=== PATIENT | male | born 1990 | race Caucasian/White ===

== ENCOUNTER 2024-03-29 19:27 | Observation (INO) | payer MEDICAID, SELFPAY ==
[2024-03-29 19:28] VITALS: PULSE 93; RESP 16; TEMP 36.6; O2SAT 94; BMI 17.9
--- NOTE | 2024-03-29 20:09 | EX.ED.SAOD ---
HPI History of Present Illness Chief Complaint: Substance Abuse Informant: patient Onset/Context/Timing Onset: Days (2) Context: Gradual Onset Worsened by: Nothing Relieved by: Nothing Associated Symptoms Associated Symptoms: Positive for fever*; Negative for vomiting*, diarrhea*, rash*, seizure, tremor, palpatations, suicidal ideation or homicidal ideation Narrative Narrative: Patient presents requesting detox from heroin and fentanyl. Patient states he uses approximately 1 g/day. Patient states his last use was Thursday. Patient states he was using Suboxone yesterday to help with withdrawal symptoms. Patient states he normally smokes the heroin and fentanyl. Patient denies any IV drug use. Patient admits to some subjective fevers and chills. Patient admits to some nausea but denies any vomiting or diarrhea. Patient denies any seizures or tremors. Patient denies any suicidal homicidal ideations. Patient states he has been through detox before but at a different facility. Patient states it has been a couple years since he went through detox. [facility] Medical History no medical history Home Medications ?Medication ?Instructions ?Recorded ?Last Taken ?Type NK 03/29/24 Unknown History Allergy/AdvReac Type Severity Reaction Status Date / Time No Known Allergies Allergy Verified 03/29/24 19:29 Surgical History History of bilateral inguinal herniorrhaphies Surgical History no surgical history Social History Smoking Status: Current every day smoker tobacco type: cigarettes and e-cigarettes ROS ROS ED Constitutional Constitutional ED: Reports chills and fever(s) Eyes Eyes: Denies blurry vision or change in vision ENT ENT ED: Denies rhinorrhea or sore throat Cardiovascular Cardiovascular: Denies chest pain or palpitations Respiratory/Chest Respiratory/Chest: Denies cough or dyspnea Gastrointestinal Gastrointestinal: Reports nausea; Denies vomiting Genitourinary Genitourinary ED: Denies dysuria or hematuria Musculoskeletal Musculoskeletal: Reports myalgias; Denies neck pain Integumentary Denies abscess or rash Neurologic Neurologic: Reports headache(s); Denies weakness Allergic/Immunologic Allergic/Immunologic ED: Denies mouth swelling or urticaria EXAM Physical Exam Const Vital Signs: 03/29/24 19:28 Temperature 97.8 F Temperature Source Temporal Pulse Rate 93 Respiratory Rate 16 Pulse Ox 94 Oxygen Delivery Method Room Air Positive well nourished and well developed General Appearance ED: well developed and NAD HEENT Reports moist mucous membranes atraumatic Neck supple and no JVD Resp normal respiratory effort and clear to auscultation bilaterally Cardio regular rate and regular rhythm GI soft to palpation, non-tender and non-distended Extremity General Extremety ED: Negative for edema or tenderness General Extremity: Negative for edema Neuro oriented x3, CN's II-XII intact bilaterally and no sensory deficits noted Kiran Coma Scale: document GCS findings Spontaneous Obeys Commands Oriented 15 Sensorium / Orientation: alert Speech: speech normal Motor Exam: strength 5/5 throughout Psych mental status grossly normal and thought process normal MDM MDM MDM Narrative Medical decision making narrative: Medical screening labs will be obtained. CBC will be obtained to assess for leukocytosis and anemia. Basic metabolic profile will be obtained to assess for electrolyte abnormality and renal function. Serum alcohol level will be obtained to assess for alcohol intoxication. Urine drug screen will be obtained to assess for substance abuse. Lab Data Attestation: I reviewed the patient's lab results. Lab results narrative: CBC was reviewed. There is a slight anemia with a hemoglobin of 12.3 and hematocrit 37.1. Basic metabolic profile was reviewed. Potassium was slightly low at 3.3. The remainder is within normal limits. Serum alcohol level was reviewed and was less than 3.0. Labs: Laboratory Results - last 24 hr 03/29/24 20:47 WBC 6.7 RBC 4.14 L Hgb 12.3 L Hct 37.1 L MCV 89.6 MCH 29.7 MCHC 33.2 RDW Std Deviation 40.2 RDW Coeff of Yvette 12.4 Plt Count 272 MPV 8.4 Immature Gran % (Auto) 0.300 Neut % (Auto) 58.2 Lymph % (Auto) 32.0 [place] % (Auto) 7.5 Eos % (Auto) 1.4 Baso % (Auto) 0.6 Absolute Neuts (auto) 3.9 Absolute Lymphs (auto) 2.13 Nucleated RBC % 0 Sodium 137 Potassium 3.3 L Chloride 104 Carbon Dioxide 27.0 Anion Gap 6 BUN 12 Creatinine 0.98 Estim Creat Clear Calc 103.73 Est GFR (MDRD) Af Amer 112 Est GFR (MDRD) Non-Af 93 BUN/Creatinine Ratio 12.2 Glucose 108 H Calcium 9.1 Ethyl Alcohol < 3.0 Management Discussion w/another healthcare provider: Hospitalist Treatment and Re-Evaluation Narrative: Case was discussed with the hospitalist for admission. He will admit the patient to his service. Patient understood and was agreeable with the plan. All questions were answered. Discharge Plan Dx/Rx/DC Orders Clinical Impression: Opiate withdrawal, Tobacco use disorder Disposition Disposition: Acute Care Hospital [facility] Discharge Date/Time: 03/29/24 21:51
--- NOTE | 2024-03-29 21:00 | HP.PCM.HOS_ITS ---
HPI - General General Date of Admission: 03/29/24 HPI Narrative TJ THAKUR, is a 33 M who presents to the hospital for opiate detox. He says that he smokes heroin and fentanyl though he is never 100% sure what he is using. He denies IV drug use. He says he has used in the past and was able to get clean and has gone through detox 3 or 4 times. This last cycle started in about September of this year. Last use was Thursday and then he had some leftover Suboxone that he tried to use to withdrawal with at home but could not manage this at home so came into the hospital. Cina score of 12 on admission to the ER. [facility] Medical History no medical history Home Medications ?Medication ?Instructions ?Recorded ?Last Taken ?Type NK 03/29/24 Unknown History Allergy/AdvReac Type Severity Reaction Status Date / Time No Known Allergies Allergy Verified 03/29/24 19:29 no significant family history Surgical History (Updated 03/29/24 @ 20:[address] Ld Doyle, DO) History of bilateral inguinal herniorrhaphies Surgical History no surgical history Social History Smoking Status: Current every day smoker tobacco type: cigarettes and e-cigar ettes ROS Constitutional Constitutional: Denies chills, fatigue, fever(s) or malaise Eyes Eyes: Denies blurry vision ENT HEENT: Denies headache(s) or nasal discharge Cardiovascular Cardiovascular: Denies chest pain, dyspnea on exertion or syncope Respiratory/Chest Respiratory/Chest: Denies cough, shortness of breath at rest or shortness of breath with exertion Gastrointestinal Gastrointestinal: Reports diarrhea and nausea; Denies constipation or vomiting Genitourinary Genitourinary: Denies dysuria Neurologic Neurologic: Denies focal weakness, numbness or tremor(s) Psychiatric Psychiatric: Reports anxiety; Denies depression Vital Signs Vital Signs Vital Signs: 03/29/24 19:28 Temperature 97.8 F Temperature Source Temporal Pulse Rate 93 Respiratory Rate 16 Pulse Ox 94 Oxygen Delivery Method Room Air Weight Weight: 150 lb 12.8 oz Body Mass Index (BMI) 17.9 Physical Exam Narrative General: Alert, Oriented x3, Cooperative, No apparent distress, restless HEENT: Atraumatic, PERRLA, EOMI, Normocephalic Oral: Moist Mucosa Neck: Supple, No JVD Lungs: Clear to auscultation, Normal air movement, No rhonchi, No wheeze, No rales Cardiovascular: Regular rate, Regular Rhythm, Normal S1, Normal S2, No murmurs Abdomen: Soft, Non Tender, Non-Distended, No Hepato-splenomegaly Extremities: No edema, Capillary Refill Less than 3 Seconds Skin: No rashes, No breakdown Musculoskeletal: No Tenderness to Palpation of Joints or Extremities Neurological: No focal neurological deficits, Motor Exam 5/5 strength throughout, Sensory exam intact to light touch and pain Psych/Mental Status: Normal Affect, Appropriate, anxious Assessment & Plan Assessment/Plan (1) Opiate withdrawal: PLAN: Plan 1. Opiate withdrawal/tobacco abuse ? Cina score of 12 ? Continue with the opiate withdrawal protocol, he does not inject therefore will not check an HIV or hepatitis panel ? He is from [place] and would like to seek treatment out there on discharge, uncertain if he would want to do inpatient ? Discussed tobacco cessation ? Continue with nicotine patch as he vapes DVT: Ambulation Charges/Coding Visit Charges Inpatient E&M: 75450 Init Hosp L2
[2024-03-29 21:06] LABS: Absolute Lymphocyte Count 2.13 X10^3/uL (0.83-4.51); Absolute Neutrophil Count 3.9 X10^3/uL (2.0-7.7); Basophil# 0.04 X10^3/uL; Basophil% 0.6 % (0-1); Eosinophil# 0.09 X10^3/uL; Eosinophils% 1.4 % (0-5); Hematocrit 37.1 % (40-54); Hemoglobin 12.3 g/dL (13.0-16.5); Lymphocyte # 2.13 X10^3/ul (0.83-4.51); Mean Corp Hgb Conc 33.2 g/dL (32-36); Mean Corpuscular Hgb 29.7 pg (27.0-32.0); Mean Corpuscular Volume 89.6 fL (80-94); Mean Platelet Vol. 8.4 fl (6.2-12.0); Monocyte% 7.5 % (0-10); NRBC Flagged by Analyzer 0 % (0-5); Neutrophil # 3.88 X10^3/uL (2.7-7.7); Neutrophil % 58.2 % (47-70); Platelet Count 272 K/mm3 (150-450); RBC Distribution Width CV 12.4 % (11.6-14.6); RBC Distribution Width SD 40.2 fl (35.1-43.9); Red Blood Count 4.14 M/mm3 (4.6-6.2); White Blood Count 6.7 K/mm3 (4.4-11.0)
[2024-03-29 21:21] LABS: Alcohol, Blood (Medical)-Serum < 3.0 mg/dL
[2024-03-29 21:23] LABS: Anion Gap 6 (5-15); BUN 12 mg/dL (7-18); BUN/Creat Ratio 12.2 RATIO (10-20); Calcium,Total 9.1 mg/dL (8.5-10.1); Chloride 104 mmol/L (98-107); Creatinine, Serum 0.98 mg/dL (0.70-1.30); EST Glomerular Filtration Rate 93 mL/min (>60); Est Glom Filt Rate - Afr Amer 112 mL/min (>60); Estimated Creatinine Clearance 103.73 ml/min; Glucose 108 mg/dL (74-106); Potassium 3.3 mmol/L (3.5-5.1); Sodium Level 137 mmol/L (136-145)
[2024-03-29 21:41] VITALS: BP 138/77; PULSE 91; RESP 16; TEMP 36.6; O2SAT 99
[2024-03-29 22:08] VITALS: BMI 20.4
[2024-03-29] MEDS: hydrOXYzine PAM 25 MG Capsule 50 MG PO (22:22)
[2024-03-29] MEDS: Methocarbamol 750 MG Tablet PO (22:22)
[2024-03-29 22:24] VITALS: BP 102/63; PULSE 78; RESP 17; TEMP 36.4; O2SAT 100
[2024-03-29] MEDS: traZODone 100 MG Tablet PO (22:43)
[2024-03-30 04:08] VITALS: BP 106/45; PULSE 68; RESP 17; TEMP 36.6; O2SAT 100
--- NOTE | 2024-03-30 07:25 | PN.HOSP_ITS ---
Reason for Visit Reason for Visit: Diagnoses Opioid use, unspecified with withdrawal (03/29/24) Subjective Subjective Feeling well, much better than yesterday. Objective Data Objective Data Vital Signs: Vital Signs Temp Pulse Resp BP Pulse Ox O2 Del Method 36.6 C 68 17 106/45 L 100 Room Air 03/30/24 04:08 03/30/24 04:08 03/30/24 04:08 03/30/24 04:08 03/30/24 04:08 03/30/24 04:08 Oxygen Delivery Method Room Air Weight: 68.4 kg Body Mass Index (BMI) 20.4 Lab / Micro Data 03/29/24 20:47 03/29/24 20:47 Labs: Laboratory Results - last 24 hr 03/29/24 20:47: WBC 6.7, RBC 4.14 L, Hgb 12.3 L, Hct 37.1 L, MCV 89.6, MCH 29.7, MCHC 33.2, RDW Std Deviation 40.2, RDW Coeff of Yvette 12.4, Plt Count 272, MPV 8.4, Immature Gran % (Auto) 0.300, Neut % (Auto) 58.2, Lymph % (Auto) 32.0, Gregory % (Auto) 7.5, Eos % (Auto) 1.4, Baso % (Auto) 0.6, Absolute Neuts (auto) 3.9, Absolute Lymphs (auto) 2.13, Nucleated RBC % 0, Sodium 137, Potassium 3.3 L, Chloride 104, Carbon Dioxide 27.0, Anion Gap 6, BUN 12, Creatinine 0.98, Estim Creat Clear Calc 103.73, Est GFR (MDRD) Af Amer 112, Est GFR (MDRD) Non-Af 93, BUN/Creatinine Ratio 12.2, Glucose 108 H, Calcium 9.1, Ethyl Alcohol < 3.0 Physical Exam Const alert and no apparent distress Constitutional Narrative: up in bed eating breakfast. Assessment & Plan Assessment/Plan (1) Opiate withdrawal: PLAN: Plan Acute opiate withdrawal * buprenorphine taper * addiction medicine to see to arrange outpatient follow up. * Patient should be ready for discharge on 04/01 Nicotine abuse (vaping) * nicotine patch Charges/Coding Visit Charges Inpatient E&M: 78281 [facility] Hosp L1
--- NOTE | 2024-03-30 08:07 | NURSING ---
a&ox3. noted COWS score, no change from [employer] assessment noted-charting reviewed. pt denies all needs.
[2024-03-30 08:08] VITALS: BP 109/66; PULSE 70; RESP 18; TEMP 36.6; O2SAT 99
[2024-03-30] MEDS: Ondansetron 8 MG Tablet PO ×2 (10:05→18:04)
[2024-03-30] MEDS: hydrOXYzine PAM 25 MG Capsule 50 MG PO ×2 (10:10→20:05)
[2024-03-30] MEDS: Buprenorphine HCl 2 MG TAB.SUBL SL ×2 (10:58→18:04)
[2024-03-30 13:33] VITALS: BP 142/88; PULSE 50; RESP 18; TEMP 36.6; O2SAT 100
--- NOTE | 2024-03-30 15:21 | ADDICTION ---
Addendum entered by Zuleyka Garcia 03/31/24 11:03: Met with patient again today. He reports he decided to follow up with [facility] instead so that he can get back on Suboxone post d/c. Original Note: Met with pt to complete RAMP assessments. Pt was A&Ox3. He was very groggy and had slurred speech. He reports that he is going to follow up with [facility] in [place] for Outpatient treatment.?
[2024-03-30] MEDS: traZODone 100 MG Tablet PO (20:05)
[2024-03-30 20:08] VITALS: BP 160/95; PULSE 80; RESP 17; TEMP 37.3; O2SAT 100
[2024-03-31] MEDS: Buprenorphine HCl 2 MG TAB.SUBL SL ×2 (02:05→09:33)
[2024-03-31] MEDS: hydrOXYzine PAM 25 MG Capsule 50 MG PO (02:10)
[2024-03-31] MEDS: Gabapentin 300 MG Capsule PO (02:10)
[2024-03-31] MEDS: Ondansetron 8 MG Tablet PO (02:10)
[2024-03-31 02:13] VITALS: BP 125/67; PULSE 65; RESP 16; TEMP 37.3; O2SAT 99
--- NOTE | 2024-03-31 07:38 | PCM.PN.HOSP ---
Reason for Visit Reason for Visit: Diagnoses Opioid use, unspecified with withdrawal (03/29/24) Objective Data Objective Data Vital Signs: Vital Signs Temp Pulse Resp BP Pulse Ox O2 Del Method 99.1 F 65 16 125/67 H 99 Room Air 03/31/24 02:13 03/31/24 02:13 03/31/24 02:13 03/31/24 02:13 03/31/24 02:13 03/31/24 02:13 Oxygen Delivery Method Room Air Weight: 68.4 kg Body Mass Index (BMI) 20.4 Lab / Micro Data 03/29/24 20:47 03/29/24 20:47
[2024-03-31 09:15] VITALS: BP 116/73; PULSE 81; RESP 14; TEMP 36.3; O2SAT 99
[2024-03-31] MEDS: Nicotine Polacrilex 2 MG GUM PO (10:27)
--- NOTE | 2024-03-31 12:17 | DS.PCM_ITS ---
Providers Date of Admission: 03/29/24 Date of Discharge: 03/31/24 Primary Care Physician: No Primary Care Phys Reason For Visit: OPIATE DETOX Diagnosis Discharge Diagnosis (1) Opiate withdrawal: Status: Acute Code(s): F11.93 - Opioid use, unspecified with withdrawal Medications at Discharge Home Medications NK 03/29/24 Hospital Course Operations None Procedures None Summary of Care Provided Minutes Spent on Discharge: 25 Hospital Course: Mr. Cuba is a 33-year-old white male who presents emergency department [facility] on 03/29/2020 for requesting detox from opiates. Patient states he smokes heroin and fentanyl however he is not 100% of what he is using. He denies any history of IV drug use. He states in the past he has been able to be sober for short periods of time and has gone through detox 3-4 times. His last cycle of use started in September of this year and his last use was on Thursday. He had some leftover Suboxone and he tried to use it for his withdrawal symptoms but could not manage at home so he came to emergency department. His COWS score on presentation was 12. Vital signs show temperature 97.8, heart rate 93, blood pressure was 138/77, respiratory 16 and pulse ox was 94% on room air. CBC was overtly unremarkable other than mild anemia with hemoglobin of 12.3. Chemistry panel showed mild hypokalemia with a potassium of 3.3 which was replaced. Labs are otherwise unremarkable. Alcohol level is negative. Urine drug screen was not obtained. He was admitted to the medical floor and placed on supportive medication for withdrawal symptoms as well as buprenorphine taper based on COWS protocol. He was seen by addiction medicine and the plan for discharge was [facility]. He is to be admitted there tomorrow on 04/01/2024 and would like to leave this evening after his last buprenorphine taper so we can going get an order. He states he is feeling better overall and is okay with that plan based on his symptoms at this time. He was discharged home in stable condition after his 5 PM dosing of buprenorphine. He is to follow-up with [facility] as previously scheduled. Discharge diagnoses: Opiate withdrawal Hypokalemia Mild anemia Tobacco abuse Physical Exam Const alert, oriented x3, no apparent distress and no limitations Constitutional Narrative: Thin, middle-aged, white male, lying in bed, appears comfortable, nontoxic General Appearance: cooperative, comfortable, well kempt and well developed Exam Limitations: no limitations Nutritional Appearance: thin HEENT normocephalic, head/scalp atraumatic and moist oral mucous membranes Resp normal respiratory effort, no use of accessory muscles and clear to auscultation bilaterally Auscultation: Negative for rales, rhonchi or wheezes Cardio regular rate, regular rhythm, S1 normal heart sound, S2 normal heart sound, no murmurs, no rub, no gallops and no clicks GI normal to inspection, nondistended, normoactive bowel sounds, soft to palpation and non-tender Extremity no clubbing, cyanosis or edema Extremity Narrative: 2+ pedal pulses Neuro oriented x3, moves all extremities and no focal motor deficits Speech: speech normal Psych Psych Narrative: Affect is slightly flat mood seems depressed but eye contact is good Weight / BMI Weight Weight: 68.4 kg Body Mass Index (BMI) 20.4 ABG / Lab / Microbiology Data 03/29/24 20:47 03/29/24 20:47 D/C Instructions Discharge Diet: No restrictions Return to work on: 04/01/24 DC O2, CPAP, BIPAP Needs Home O2 Discharge instructions: No Meaningful Use Info Meaningful Use Meaningful Use Diagnoses (Choose all that apply): None applicable Ischemic Stroke Statin Dosing Therapy Reference: STATIN DOSE THERAPY REFERENCE: * Patients > 75 years receive moderate or high dose statin therapy. * Patients 75 years or YOUNGER should receive HIGH intensity statin dose unless contraindicated. You will be required to document reason for non-treatment if statin daily dose does not meet guidelines. HIGH DOSE STATIN THERAPY DAILY Atorvastatin > than or = to 40 mg Rosuvastatin > than or = to 20 mg Amlodipine + Atorvastatin > than or = to 2.5/40 mg Ezetimibe + Simvastatin 10/80 mg Simvastatin 80mg Discharge Plan Admission Admit Date/Time: 03/29/24 20:58 Primary Reason for Your Visit: Opiate detox Attending Provider: She Gomez Primary Care Provider: Care Physician,No Primary Consulting Providers: Kian Thomas Eric Instructions Additional Instructions / Restrictions: 1. Please follow-up tomorrow at [facility] Discharge Orders/Prescriptions Prescriptions: Continued NK Referrals / Follow Up: Care Physician,No Primary [Primary Care Provider] - Disposition Disposition (needs filled in before D/C Order can be placed): Home, Self Care Charges/Coding Visit Charges Inpatient E&M: 88838 Disch Hosp
[2024-03-31 13:45] VITALS: BP 117/83; PULSE 95; RESP 20; TEMP 36.3; O2SAT 96
== END 2024-03-31 14:10 | disposition home or self-care (01) | DRG 773 ==
LOC: ED 21:03 → MS3 21:13
PROVIDERS: Admitting Provider Family Medicine; Emergency Provider Emergency Medicine; Visit Provider Internal Medicine
DX: F11.13 Opioid abuse with withdrawal (principal); E87.6 Hypokalemia; F17.210 Nicotine dependence, cigarettes, uncomplicated; F17.290 Nicotine dependence, other tobacco product, uncomplicated; Z71.6 Tobacco abuse counseling
CPT/HCPCS: 80048; 82077; 85025; 99283; H0012